=== PATIENT | female | born 1945 | race African-American/Black ===

== ENCOUNTER 2018-03-11 18:48 | Emergency (ER) | payer MEDICARE, OTHER, MEDICAID ==
[~2018-03-11] VITALS: Ht 162.6 cm; Wt 70.0 kg
[~2018-03-11 18:48] MED LIST: ALPR0.25 PO; ASPI-1159 PO; CLON0.2T PO; GABA100C PO; HYDR-4134 PO; INSLAN SQ; ISOS30TA6 PO; LISI-604 PO; METO-539 PO; OMEP20CA4 PO; TRAM50TA3 PO
[2018-03-11] MEDS ORDERED: DIPHENHYDRAMINE 50MG/ML VIAL IV ONE (19:45)
[2018-03-11] MEDS ORDERED: PROCHLORPERAZINE 10MG/2ML VIAL IV ONE (19:45)
[2018-03-11 20:21] LABS: BASOPHILS % 0.9 % (0.0-2.0); EOSINOPHILS % 4.9 % (0.0-5.0); HEMOGLOBIN. 9.2 g/dL (12.0-16.0); LYMPHOCYTES % 26.6 % (20.0-50.0); MEAN CORPUSCULAR HEMOGLOBIN 28.1 pg (28.0-32.0); MEAN PLATELET VOLUME 7.7 fl (7.4-10.4); MONOCYTES % 13.3 % (2.0-8.0); NEUTROPHILS % 54.3 % (40.0-76.0); PLATELET 253 x1000/uL (130-400); RED BLOOD CELL COUNT 3.29 mill/uL (4.2-5.4); RED CELL DISTRIBUTION WIDTH 18.5 % (11.6-14.6)
[2018-03-11 20:27] LABS: CHLORIDE 114 mEq/L (98-107)
[2018-03-11 20:41] LABS: INR 1.1; PROTHROMBIN TIME 11.4 sec (9.4-11.6)
[2018-03-11] MEDS ORDERED: CLONIDINE 0.1MG TABLET PO ONE (23:00)
[2018-03-12 04:38] VITALS: BP 225/126
[2018-03-12] MEDS ORDERED: CLONIDINE 0.3MG TABLET PO ONE (04:45)
[2018-03-12] MEDS ORDERED: HYDRALAZINE HCL 50MG TABLET PO ONE (04:45)
== END 2018-03-12 04:35 | disposition home or self-care (01) ==
LOC: ER 19:17
DX: R51 Headache (principal); H93.13 Tinnitus, bilateral; D63.1 Anemia in chronic kidney disease; I13.10 Hypertensive heart and chronic kidney disease without heart failure, with stage 1 through stage 4 chronic kidney disease, or unspecified chronic kidney disease; N18.9 Chronic kidney disease, unspecified; J44.9 Chronic obstructive pulmonary disease, unspecified; M06.9 Rheumatoid arthritis, unspecified; E16.2 Hypoglycemia, unspecified; Z86.73 Personal history of transient ischemic attack (TIA), and cerebral infarction without residual deficits; Z79.82 Long term (current) use of aspirin; Z79.4 Long term (current) use of insulin
CPT/HCPCS: 36415; 70450; 71045; 80053; 80329; 82962; 83880; 84484; 85025; 85610; 93005; 96374; 96375; 99285; J0780; J1200